=== PATIENT | male | born 1960 | race Caucasian/White ===

== ENCOUNTER → 2017-10-31 | Outpatient (CLI) | payer BC ==
[2017-10-31 11:11] LABS: ADD MAN DIFF? NO
[2017-10-31 11:14] LABS: BASOPHIL # 0.1 10^3/ul (0.0-0.1); EOSINOPHILS # 0.2 10^3/ul (0.0-0.5); EOSINOPHILS % 2.5 % (0.0-7.0); HEMATOCRIT 46.3 % (42.0-52.0); HEMOGLOBIN 16.6 g/dl (14.0-18.0); LYMPHOCYTES # 1.9 10^3/ul (0.8-2.9); LYMPHOCYTES % 28.8 % (15.0-51.0); MEAN CORPUSCULAR HEMOGLOBIN 32.6 pg (29.0-33.0); MEAN CORPUSCULAR HGB CONC 35.9 g/dl (32.0-37.0); MEAN PLATELET VOLUME 10.2 fl (7.4-10.4); MONOCYTE # 0.7 10^3/ul (0.3-0.9); MONOCYTES % 10.5 % (0.0-11.0); NEUTROPHIL # 3.8 10^3/ul (1.6-7.5); NEUTROPHILS % 56.9 % (39.0-77.0); PLATELET COUNT 217 10^3/UL (140-415); RED BLOOD COUNT 5.09 10^6/ul (4.70-6.10); RED CELL DISTRIBUTION WIDTH 12.6 % (11.5-14.5)
[2017-10-31 11:14] LABS: WHITE BLOOD COUNT 6.7 10^3/ul (4.8-10.8)
[2017-10-31 11:20] LABS: ADD UMIC NO; UR ASCORBIC ACID NEGATIVE (NEGATIVE); UR BILIRUBIN (Dip) NEGATIVE (NEGATIVE); UR BLOOD (Dip) NEGATIVE (NEGATIVE); UR CLARITY CLEAR (CLEAR); UR COLOR YELLOW (YELLOW); UR GLUCOSE (Dip) NEGATIVE (NEGATIVE); UR KETONES (Dip) NEGATIVE (NEGATIVE); UR LEUKOCYTE ESTERASE (Dip) NEGATIVE Leu/ul (NEGATIVE); UR NITRITE (Dip) NEGATIVE (NEGATIVE); UR SPECIFIC GRAVITY (Dip) 1.021 (1.003-1.030); UR TOTAL PROTEIN (Dip) NEGATIVE (NEGATIVE); UR UROBILINOGEN (Dip) 1+ mg/dL (NEGATIVE)
[2017-10-31 11:36] LABS: ALANINE AMINOTRANSFERASE 82 IU/L (13-69); ALBUMIN 4.8 g/dl (3.3-4.9); ALBUMIN/GLOBULIN RATIO 1.29; ALKALINE PHOSPHATASE 72 IU/L (42-121); ANION GAP 18 (8-16); ASPARTATE AMINO TRANSFERASE 58 IU/L (15-46); BILIRUBIN,INDIRECT 0.4 mg/dl (0-1.1); BILIRUBIN,TOTAL 0.4 mg/dl (0.2-1.3); BLOOD UREA NITROGEN 13 mg/dl (7-20); CALCIUM 9.8 mg/dl (8.4-10.2); CARBON DIOXIDE 29 mmol/L (21-31); CHLORIDE 103 mmol/L (97-110); CHOL/HDL RATIO 4.8 RATIO; CHOLESTEROL 190 mg/dl (100-200); CREATININE 1.12 mg/dl (0.61-1.24); GLUCOSE 116 mg/dl (70-220); HDL CHOLESTEROL 39 mg/dl (28-71); LDL CHOLESTEROL,CALCULATED 130 mg/dl; POTASSIUM 4.4 mmol/L (3.5-5.1); SODIUM 146 mmol/L (135-144); TOTAL PROTEIN 8.5 g/dl (6.1-8.1); TRIGLYCERIDES 103 mg/dl (0-149)
[2017-10-31 11:53] LABS: T4 (THYROXINE) 9.5 ug/dl (5.5-11.0)
[2017-10-31 12:06] LABS: PROSTATE SPECIFIC ANTIGEN 0.9 ng/ml (0.0-4.0)
[2017-10-31 13:04] LABS: HEMOGLOBIN A1C 5.6 % (0-5.9)
== END | disposition home or self-care (01) ==
LOC: RAD 10:44
DX: M16.11 Unilateral primary osteoarthritis, right hip (principal); N40.0 Benign prostatic hyperplasia without lower urinary tract symptoms; E78.5 Hyperlipidemia, unspecified; R73.03 Prediabetes
CPT/HCPCS: 73510; 80053; 80061; 81003; 83036; 84153; 84154; 84436; 84443; 85025

== ENCOUNTER 2019-02-22 13:35 | Emergency (ER) | payer BC ==
[2019-02-22] MEDS: HYDROCODONE/APAP (5/325) TAB PO (15:15)
[2019-02-22] MEDS: IBUPROFEN 600 MG TAB PO (15:15)
== END 2019-02-22 16:52 | disposition home or self-care (01) ==
LOC: FTE 16:52
DX: S39.92XA Unspecified injury of lower back, initial encounter (principal); S19.9XXA Unspecified injury of neck, initial encounter; I10 Essential (primary) hypertension; V89.2XXA Person injured in unspecified motor-vehicle accident, traffic, initial encounter
CPT/HCPCS: 72040; 72100; 99283-25